=== PATIENT | female | born 1990 | race Caucasian/White ===

== ENCOUNTER 2020-08-16 18:30 | Emergency (ER) | payer OTHER ==
[~2020-08-16] VITALS: Ht 162.6 cm; Wt 120.5 kg
[2020-08-16 18:52] VITALS: TEMP 96.8
[2020-08-16 21:32] LABS: COLLECTION METHOD CLEAN CATCH
[2020-08-16 21:39] LABS: BASO % 0.2 % (0.0-2.0); EOS % 0.2 % (0-4.0); GRAN # 16.1 (1.4-6.5); GRAN % 86.4 % (42.2-75.2); HEMATOCRIT 40.9 % (37.0-47.0); HEMOGLOBIN 13.6 g/dl (12.5-16.0); LYMPH # 1.8 (1.2-3.4); LYMPH % 9.7 % (20.0-51.0); MEAN CELL VOLUME 86 fl (80.0-100.0); MEAN CORPUSCULAR HEMOGLOBIN 29 pg (27.0-31.0); MEAN CORPUSCULAR HGB CONC 33 g/dl (33.0-37.0); MEAN PLATELET VOLUME 9.9 fl (7.4-10.4); MONO # 0.6 (0.1-0.6); PLATELET COUNT 397 K/mm3 (130-400); RED BLOOD COUNT 4.75 M/mm3 (4.10-5.30); REDCELL DISTRIBUTION WIDTH-CV 12.6 % (11.5-14.5)
[2020-08-16 21:53] LABS: ALBUMIN 4.9 gm/dL (3.5-5.0); BILIRUBIN,TOTAL 0.6 mg/dL (0.0-1.0); C-REACTIVE PROTEIN 1.5 mg/dL (0.0-0.9); CALCIUM 9.2 mg/dL (8.4-10.2); CREATININE, serum 0.92 (0.52-1.25); POTASSIUM 3.8 mmol/L (3.4-5.0); TOTAL PROTEIN 8.5 gm/dL (6.4-8.2)
[2020-08-16 22:00] LABS: MUCOUS Present /lpf; PH 7 (5-8); SQUAMOUS EPITHELIAL 0-2 /hpf; URINE APPEARANCE Cloudy; URINE BACTERIA Rare /hpf; URINE BILIRUBIN Negative (NEGATIVE); URINE BLOOD Negative (NEGATIVE); URINE COLOR Yellow; URINE GLUCOSE Negative (NEGATIVE); URINE KETONE 1+ (NEGATIVE); URINE LEUKOCYTE ESTERASE Trace (NEGATIVE); URINE NITRATE Negative (NEGATIVE); URINE PROTEIN(semi-quant) Negative (NEGATIVE); URINE UROBILINOGEN Negative (NEGATIVE)
[2020-08-16] MEDS ORDERED: COMPAZINE 5MG TA5 MG PO (22:04)
[2020-08-16] MEDS ORDERED: PROZAC40 MG PO (22:04)
[2020-08-16] MEDS ORDERED: PROTONIX 40MG T40 MG PO (22:05)
[2020-08-16] MEDS ORDERED: BUSPAR10 MG PO (22:05)
[2020-08-17] MEDS ORDERED: MACROBID 1100 MG/CAP PO (00:07)
[2020-08-17] MEDS ORDERED: ZOFRAN 4MG T4 MG/TAB PO (00:08)
[2020-08-17 00:12] VITALS: BP 161/82; PULSE 64
== END 2020-08-17 00:19 | disposition home or self-care (01) ==
LOC: COL.ER 18:30
PROVIDERS: Nurse Practitioner Primary Care
DX: K31.84 Gastroparesis (principal); N39.0 Urinary tract infection, site not specified; K21.9 Gastro-esophageal reflux disease without esophagitis; F41.9 Anxiety disorder, unspecified; F32.9 Major depressive disorder, single episode, unspecified; Z88.1 Allergy status to other antibiotic agents
CPT/HCPCS: J1170; J2405; Q9967

== ENCOUNTER 2020-10-21 10:17 | Day surgery (SDC) | payer OTHER ==
[2020-10-21] VITALS (7 sets, daily range): BP systolic 117–134; BP diastolic 64–98; PULSE 78–95; TEMP 97.9–98.1
[~2020-10-21] VITALS: Ht 162.6 cm; Wt 120.9 kg
[~2020-10-21 10:17] MED LIST: BUSPAR10 MG PO; COMPAZINE 5MG TA5 MG PO; MACROBID 1100 MG/CAP PO; PROTONIX 40MG T40 MG PO; PROZAC40 MG PO; ZOFRAN 4MG T4 MG/TAB PO
[2020-10-21] MEDS ORDERED: BUSPAR DIVIDOSE15 MG PO (12:24)
[2020-10-21] MEDS ORDERED: MOTRIN 600600 MG/TAB PO (14:31)
[2020-10-21] MEDS ORDERED: NORCO 325 MG-51 TAB PO (14:31)
--- NOTE | 2020-10-21 15:00 | NUR ---
Patient recieved from PACU per cart accompanied by Yee GREEN and is awake and alert. Temp 96.3 and room air sats 98%. IV fluids infusing and site is free of redness. Siderails up x2 and call light in reach. Exofen covering scope sites on abdomen x5 clean and dry. Denies pain or nausea and is sipping on grape juice.
--- NOTE | 2020-10-21 15:15 | NUR ---
Resting on side with eyes closed and offers no complaints.
--- NOTE | 2020-10-21 15:30 | NUR ---
Continues to rest and offers no complaints.
--- NOTE | 2020-10-21 15:45 | NUR ---
Continues to rest. Offers no complaints.
--- NOTE | 2020-10-21 16:00 | NUR ---
Awake. Eating muffin and drinking more grape juice.
--- NOTE | 2020-10-21 16:18 | NUR ---
Assisted up to the bathroom. Gait steady. IV to INT.
--- NOTE | 2020-10-21 16:23 | NUR ---
Returns to room and dresses self. Continues to deny pain.
--- NOTE | 2020-10-21 16:33 | NUR ---
Dismissal instructions given and signed. INT needle was discontinued. Informed that scripts were sent to [facility] pharmacy.
--- NOTE | 2020-10-21 16:37 | NUR ---
Patient taken to the emergency room entrance per wheelchair. Had emesis of approximately 50cc's of grape juice. Encouraged to go home and rest. States that she has Gingerale at home and will eat some crackers later. Friend will go get scripts from pharmacy.
== END 2020-10-21 16:37 | disposition home or self-care (01) ==
LOC: SDCO 10:17
DX: K80.10 Calculus of gallbladder with chronic cholecystitis without obstruction (principal); F32.9 Major depressive disorder, single episode, unspecified; F41.9 Anxiety disorder, unspecified; K21.9 Gastro-esophageal reflux disease without esophagitis; Z79.899 Other long term (current) drug therapy; Z88.1 Allergy status to other antibiotic agents
CPT/HCPCS: J0330; J0690; J1100; J1885; J2250; J2405; J2704; J3010; J7120